=== PATIENT | female | born 1990 | race Caucasian/White ===

== ENCOUNTER 2017-01-08 09:10 | Inpatient (IN) ==
[2017-01-08] MEDS ORDERED: *HR* Nalbuphine 20 MG/ML AMPUL IVP PRN (09:23)
[2017-01-08] MEDS ORDERED: Famotidine 20 MG/2 ML VIAL IVP PRN (09:23)
[2017-01-08] MEDS ORDERED: Naloxone 0.4 MG/ML INJ IVP PRN ×2 (09:23→15:53)
[2017-01-08] MEDS ORDERED: Ringers Solution, Lactated 1,000 ML IVC SCH (09:30)
[2017-01-08] MEDS ORDERED: Oxytocin 20 units/ LR 1000 mL 20 UNIT/1,000 ML BAG IVC SCH ×2 (09:30→19:53)
[2017-01-08] MEDS ORDERED: Oxytocin 20 units/ LR 1000 mL 20 UNIT/1,000 ML BAG IVC ONE (09:40)
[2017-01-08] MEDS ORDERED: Ringers Solution, Lactated 1,000 ML ONE (09:40)
[2017-01-08 09:58] LABS: Basophils % 0.3 %; Eosinophils % 0.3 %; Hematocrit 40.3 % (35.3-44.9); Hemoglobin 14.5 g/dL (11.5-15.4); Immature Granulocytes % 0.4 % (0-4); Lymphocytes # 2.2 K/mcL (0.6-4.6); Lymphocytes % 19.5 %; Mean Platelet Volume 11.2 fL (9.4-12.4); Monocytes # 0.6 K/mcL (0.0-1.3); Monocytes % 5.5 %; Neutrophils # 8.4 K/mcL (1.6-8.9); Platelet Count 223 K/mcL (140-400); Red Blood Count 4.53 M/mcL (3.82-4.97)
--- NOTE | 2017-01-08 11:42 | Anesthesia Evaluation PreOp ---
Date of Encounter: 01/08/17 Time of Encounter: 11:15 - Past History Planned Operation: JULIANA Cardiac History: Denies any Significant Hx Pulmonary History: Denies Any Significant HX [employer] History: Denies Any Significant HX Other Medical History: Denies Any Significant HX Anesthesia History: No Prior Anesthetic Complications : Yes Alcohol Use: none Drug use: none Medications and Allergies Vit Calc,Iron,Folic [ Vitamins] 1 tab PO DAILY 01/08/17 [ History] Allergies No Known Allergies Allergy (Verified 01/08/17 10:28) - Meds/Allergy Pre-op Review Medications Reviewed: Yes Allergies Reviewed: Yes Beta Blockers on Current Med List: No Anesthesia Results - Labs 01/08/17 09:45 Anesthesia Exam BP 116/66 P 86 R 16 T 97.3 Height: 5'3" Weight: 78.5KG NPO (# of Hours): 4 Pain Scale: 0 Pain Scale Used: Numeric (1 - 10) - HEENT Pupil (Motor): Pupils equal Mallampati: II Teeth: Normal Oral Opening: Greater than 3 - [employer] LOC: Oriented [employer] Motor: Normal RUE, Normal LUE, Normal RLE, Normal LLE, Normal Face [employer] Sensory: Normal: RUE, LUE, RLE, LLE, Face - Cardiac Rhythm: Regular Murmur: None JVD: No Carotid Bruit: No - Pulmonary Breath Sounds: bilateral Clear Respiratory Effort: Symmetrical Anesthesia Assess/Plan ASA Score: 2 Modified Phil Scale for Level of Consciousness: Cooperative, oriented, and tranquil Anesthetic Plan: Regional Autologous Blood: No Monitoring Plan: Standard Monitors Recovery Plan: Other
--- NOTE | 2017-01-08 12:50 | OB/GYN History & Physical ---
Date of Encounter: 01/08/17 Time of Encounter: 12:30 Assessment and Plan (1) 37 weeks gestation of Current visit: Yes Status: Acute (2) SROM (spontaneous rupture of membranes) Current visit: Yes Status: Acute Pitocin augmentation in term with SROM. GBS negative. IUPC placed to evaluate montevideo units accurately. Patient declines needs at this time. History of Present Illness Chief complaint: SROM HPI: Ms. Barcenas is a 26 year old female G3 P 1-0-1-1 @ 37 2/7 weeks presents to labor and delivery for spointaneous rupture of membranes at 0630. She reports good movement and not really feeling contractions prior to starting pitocin. has been uncomplicated. Past Med Surg Social Fam HX - Past Medical History Source: patient Medical history: no medical history Psychiatric history: no psych history - Past Surgical History Surgical History: no surgical history - Social History Smoking Status: Never smoker Smokeless Tobacco Status: No Alcohol use: none Drug use: none Current living situation: Home - Independent Activity Level: Independent ambulation Recent Out of Country Travel Within the Last 8 Weeks: No - Family History Mother Name: denies any medical history Obstetrical History - Pregnancies : 3 Para: 1 Term: 1 : 0 Ab's: 1 Livin Medications and Allergies Vit Calc,Iron,Folic [ Vitamins] 1 tab PO DAILY 01/08/17 [ History] Allergies No Known Allergies Allergy (Verified 01/08/17 10:28) Review of System OB All systems PM: reviewed and no additional remarkable complaints except as stated Exam - Constitutional Constitutional: well developed, well nourished, no acute distress, average body habitus - HEENT HEENT: Normocephaly, Mucus Membranes Moist - Neck Neck exam: full ROM - Lungs Respiratory exam: CTAB - Cardiovascular Cardiovascular exam: RRR - Abdomen Abdomen: Present: bowel sounds normal, gravid, non tender - Extremities Extremities exam: warm - Vulva Vulva: bilateral: normal - Vagina Vagina: Present: normal moisture - Cervix Dilation: 2 Effacement: 50 Station: -3 - Comments Comments: Nitrazine positive, continues to leak clear amniotic fluid. IUPC placed without difficulty. FHT"s basline 135, reactive. CTX q 3-4 minutes with pitocin at 10 mUnits/min Results Result Diagrams: 01/08/17 09:45 Abnormal lab results WBC 11.3 K/mcL (4.3-11.1) H 01/08/17 09:45 MCHC 36.0 g/dL (31.6-35.5) H 01/08/17 09:45 All other labs normal. - VTE Reasons for not Prescribing Prophylaxis: Treatment not Indicated - Low risk for VTE
[2017-01-08] MEDS ORDERED: Ondansetron 4 MG/2 ML VIAL IVP PRN (15:53)
[2017-01-08] MEDS ORDERED: EPHEDrine 50 MG/ML VIAL IVP PRN (15:53)
[2017-01-08] MEDS ORDERED: *HR* FentaNYL (PF) 100 MCG/2 ML VIAL EP ONE (15:53)
[2017-01-08] MEDS ORDERED: Bupivacaine-MPF 0.25% 10 ML VIAL EP ONE (15:53)
[2017-01-08] MEDS ORDERED: Epidural Premix (fent/bupiv) 110 ML EP SCH (16:00)
[2017-01-08] MEDS ORDERED: Bupivacaine-MPF 0.25% 10 ML VIAL ONE (16:01)
[2017-01-08] MEDS ORDERED: *HR* FentaNYL (PF) 100 MCG/2 ML VIAL ONE (16:01)
[2017-01-08] MEDS ORDERED: Epidural Premix (fent/bupiv) 110 ML EP ONE (16:02)
--- NOTE | 2017-01-08 16:42 | Anesthesia Procedures ---
Date of Encounter: 01/08/17 Time of Encounter: 16:04 Procedures: Anesthesia - Epidural/Spinal Patient ID/Chart reviewed: Yes Patient examined: Yes OB Eval: Gestational age: 37.1 OB Eval: : 2 OB Eval: Hx Para: 1 OB Eval: Dilated at (cm): 4 OB Eval: Contractions: Non-stressed pattern Consent Obtained: Yes Supplemental Oxygen: None/Room Air Site Prep: Aseptic Technique, Sterile prep and drape, Povidone-Iodine 1% Patient position: upright Local Anesthetic: Lidocaine 1% Amount of Local Anesthetic used: 3 Touhy Needle Gauge: 18 Touhy Needle Depth (cm): 6 Catheter Depth at Skin (cm): 14 Test Dose (1.5% Lido + Epi): Volume given (mls): 3 Test Dose Result: Negative Loading Dose: 0.25% Marcaine (mls): 10 Loading Dose: Fentanyl (mcg): 100 Loading Dose Administered: Thru Catheter Infusion Med: 0.125% Bupivacaine w/ 2 mcg/ml Fentanyl Infusion Rate (mls/hr): [address]: Tegaderm, Tape Interspace Used: L4-L5 Loss of Resistance (RANJIT): Yes Blood: No CSF: No Paresthesia: No Procedure: JULIANA placed in upright position 1st pass without any immediate noted difficulty. VSS and FHT stable throughout. Vitals + FHT's: 1604 BP 148/58 P 87 R 18 1635 BP 121/70 P 77 R 16 FHT 130s
--- NOTE | 2017-01-08 17:55 | OB/GYN Procedure Note ---
Delivery - Delivery Date: 01/08/17 Provider: Candace Vail Intrapartum events: none Delivery augmentation: pitocin Delivery monitor: external FHT, external uterine, internal uterine Anesthesia: epidural Estimated Blood Loss: 200 - (s) Infant A Delivery Date: 01/08/17 Delivery Time: 17:31 Presentation: vertex Position: DEJA Route of delivery: Gender: Female Viability: Viable Pounds: 5 Ounces: 10 Weight Gram: 2.575 kg at 1 minute: 8 at 5 mins: 9 Shoulder Dystocia: not encountered Placenta: spontaneous - Repair Episiotomy: none Laceration Description: Perineal - 1st Degree - Complications Delivery complications: none Delivery comments: Called to room with patient complete and +2 station. Under maternal effort she delivered a viable female weighing 5 lbs. 10 oz. and Apgars 8 and 9 at one and 5 minutes respectively over first degree perineal laceration. Following delivery of the head there was no nuchal cord or shoulder dystocia encountered. The infant delivered with maternal effort. Placed on mom's abdomen. Cord was allowed to cease pulsations and then was double clamped and cut. Placenta delivered spontaneously, complete, and intact with a three-vessel cord. The first degree perineal laceration was reapproximated using 4-0 Vicryl. Sponge and needle counts correct at the end of the procedure. Mother and infant are recovering in the LDR in stable condition. - Disposition Mom disposition: stable in LDR [place] disposition: stable in LDR
[2017-01-08] MEDS ORDERED: Ibuprofen 600 MG TABLET PO PRN (19:53)
[2017-01-08] MEDS ORDERED: Acetaminophen 325 MG TABLET PO PRN (19:53)
[2017-01-09] MEDS ORDERED: Prenatal Vit/FA 1 EACH TABLET PO SCH (09:00)
--- NOTE | 2017-01-09 09:35 | Discharge Summary ---
Date of Encounter: 01/09/17 Time of Encounter: 09:33 - Discharge Diagnosis (1) Vaginal delivery Priority: Primary Status: Acute Comments: Patient meeting milestones (ambulating, voiding, flatus, no fever). Reports feeling well, would like to go home, 1st degree laceration minimal pain , no dehiscence. - Discharge Medications Home Medications: Vit Calc,Iron,Folic [ Vitamins] 1 tab PO DAILY 01/08/17 [ History] Docusate [Colace] 100 mg PO BID 01/09/17 [Rx] Ibuprofen [Motrin] 600 mg PO Q6HR PRN tab 01/09/17 [Rx] Vit/FA 1 each PO DAILY tab 01/09/17 [Rx] Allergies/Adverse Reactions: Allergies No Known Allergies Allergy (Verified 01/08/17 10:28) Data Procedures and tests throughout hospitalization: Laboratory Tests 01/08/17 09:45 WBC 11.3 H RBC 4.53 Hgb 14.5 Hct 40.3 MCV 89.0 MCH 32.0 MCHC 36.0 H RDW 13.0 Plt Count 223 MPV 11.2 Immature Gran % 0.4 Seg Neutrophils % 74.0 Lymphocytes % 19.5 Monocytes % 5.5 Eosinophils % 0.3 Basophils % 0.3 Neutrophils # 8.4 Lymphocytes # 2.2 Monocytes # 0.6 Eosinophils # 0.0 Basophils # 0.0 Labs on day of discharge: Labs from last 24 hours 01/08/17 09:45 WBC 11.3 H RBC 4.53 Hgb 14.5 Hct 40.3 MCV 89.0 MCH 32.0 MCHC 36.0 H RDW 13.0 Plt Count 223 MPV 11.2 Immature Gran % 0.4 Seg Neutrophils % 74.0 Lymphocytes % 19.5 Monocytes % 5.5 Eosinophils % 0.3 Basophils % 0.3 Neutrophils # 8.4 Lymphocytes # 2.2 Monocytes # 0.6 Eosinophils # 0.0 Basophils # 0.0 Date of admission: 01/08/17 09:10 Primary care physician: PCP NONE Consults: 01/08/17 19:53 Consult to Emergency Communications Operator [CONS] Routine Comment: Vaginal delivery, consult needed Discharging clinician: Simona Singh Anticipated date of discharge: 01/09/17 - Patient Status Disposition: Home, Self-Care Condition: Good Functional capacity at discharge: independent ambulation Overall status at discharge: patient is progressing back to baseline - Discharge Instructions Follow Up With: NONE,PCP [Primary Care Provider] - Candace Vail, DO [Partnered Physician] - - Diet and Activity Activity: increase activity as tolerated Diet: regular diet Hospital Course Reason for admission: induction of labor Delivery: Episiotomy: none Laceration: 1st degree Other procedures: none complications: none Discharge diagnosis: IUP at term delivered baby: female Hospital course: - Delivery Date: 01/08/17 Provider: Candace Vail Intrapartum events: none Delivery augmentation: pitocin Delivery monitor: external FHT, external uterine, internal uterine Anesthesia: epidural Estimated Blood Loss: 200 - Infant (s) Infant A Delivery Date: 01/08/17 Delivery Time: 17:31 Presentation: vertex Position: DEJA Route of delivery: Gender: Female Viability: Viable Pounds: 5 Ounces: 10 Weight Gram: 2.575 kg at 1 minute: 8 at 5 mins: 9 Shoulder Dystocia: not encountered Placenta: spontaneous - Repair Episiotomy: none Laceration Description: Perineal - 1st Degree - Complications Delivery complications: none - Disposition Mom disposition: home PPD1 [place] disposition: home with mother Time Attestation: Total time spent providing and/or coordinating discharge services: Time Spent: Less than 30 minutes Exam - Constitutional Vitals: Temp Pulse Resp BP Pulse Ox 97.6 F 86 14 123/72 97 01/09/17 08:26 01/09/17 08:26 01/09/17 08:26 01/09/17 08:26 01/09/17 08:26 General appearance IM: A&O X 3 - Respiratory Respiratory exam: Present: CTAB - Cardiovascular Cardiovascular exam IM: Present: +S1, +S2 - Uterus Position: 2 Fingers Above Umbilicus - Extremities Exam Extremities exam IM: Present: warm - Neurological Exam Neurological exam: CN II-XII intact
[2017-01-09 16:49] VITALS: BP 120/78
[2017-01-09] MEDS ORDERED: Ondansetron ODT 4 MG TAB.RAPDIS SL PRN (17:06)
== END 2017-01-09 20:00 | disposition home or self-care (01) | DRG 775 ==
LOC: 1NENULAB → OBSVTOIN 09:10 → 1NENUOBS 21:00
PROVIDERS: ADMIT Obstetrics & Gynecology; ATTEND Obstetrics & Gynecology

== ENCOUNTER 2020-07-23 07:52 | Inpatient (IN) ==
[2020-07-23] MEDS ORDERED: Metoclopramide 10 MG/2 ML VIAL IVP PRN (08:09)
[2020-07-23] MEDS ORDERED: Azithromycin 500 MG in 0.9 % Sodium Chloride 250 ML IVPB ONE (08:09)
[2020-07-23] MEDS ORDERED: Naloxone 0.4 MG/ML INJ IVP PRN (08:09)
[2020-07-23] MEDS ORDERED: Famotidine 20 MG/2 ML VIAL IVP PRN (08:09)
[2020-07-23] MEDS ORDERED: *HR* Nalbuphine 10 MG/ML AMPUL IV PRN (08:09)
[2020-07-23] MEDS ORDERED: Lidocaine 1% 20 ML MDV ID PRN (08:09)
[2020-07-23] MEDS ORDERED: Ondansetron 4 MG/2 ML VIAL IVP PRN (08:09)
[2020-07-23] MEDS ORDERED: Ringers Solution, Lactated 1,000 ML IVC SCH (08:15)
[2020-07-23] MEDS ORDERED: Oxytocin 20 units/ LR 1000 mL 20 UNIT/1,000 ML BAG IVC SCH ×2 (08:15→18:45)
[2020-07-23] MEDS ORDERED: EPHEDrine 50 MG/ML VIAL IVP PRN (08:33)
[2020-07-23] MEDS ORDERED: Epidural Premix (fent/bupiv) 110 ML EP SCH (08:45)
[2020-07-23 08:54] LABS: Basophils % 0.3 %; Eosinophils # 0.1 K/mcL (0.0-0.6); Eosinophils % 0.7 %; Hematocrit 38.2 % (35.3-44.9); Immature Granulocytes % 0.5 % (0-4); Lymphocytes # 2.8 K/mcL (0.6-4.6); Lymphocytes % 28.2 %; Mean Corpuscular HGB Conc 36.6 g/dL (31.6-35.5); Mean Corpuscular Hemoglobin 32.9 pg (28.0-33.3); Mean Corpuscular Volume 89.9 fL (83.0-100.0); Mean Platelet Volume 11.5 fL (9.4-12.4); Monocytes # 0.9 K/mcL (0.0-1.3); Monocytes % 9.2 %; Platelet Count 218 K/mcL (140-400); Red Blood Count 4.25 M/mcL (3.82-4.97); Red Cell Distribution Width 12.8 % (11.5-14.5); Segmented Neutrophils % 61.1 %; White Blood Count 9.8 K/mcL (4.3-11.1)
[2020-07-23 10:23] LABS: Influenza A PCR Negative (Negative); Influenza B PCR Negative (Negative); Resp. Syncytial Virus PCR Negative (Negative)
[2020-07-23 11:09] LABS: Amphetamine Screen,Urine Negative ng/mL (Cutoff=1000); Barbiturate Screen,Urine Negative ng/mL (Cutoff=200); Benzodiazepines Screen,Urine Negative ng/mL (Cutoff=200); Cannabinoid Screen,Urine Negative ng/mL (Cutoff = 50); Cocaine Screen,Urine Negative ng/mL (Cutoff= 300); Opiate Screen,Urine Negative ng/mL (Cutoff=300); Phencyclidine Screen,Urine Negative ng/mL (Cutoff=25)
[2020-07-23 11:25] LABS: SARS-CoV-2 by PCR (In House) Negative (Negative)
[2020-07-23] MEDS ORDERED: *HR* FentaNYL (PF) 100 MCG/2 ML VIAL ONE (17:06)
[2020-07-23] MEDS ORDERED: Ropivacaine/PF 0.2% 20 ML VIAL ONE (17:07)
[2020-07-23] MEDS ORDERED: Benzocaine/Menthol 56 GM AEROSOL SPRAY TP PRN (18:33)
[2020-07-23] MEDS ORDERED: Acetaminophen 325 MG TABLET PO PRN (18:33)
[2020-07-23] MEDS ORDERED: Lanolin 7 G OINT...G. TP PRN (18:33)
[2020-07-23] MEDS ORDERED: Oxytocin 20 units/ LR 1000 mL 20 UNIT/1,000 ML BAG IVC ONE (18:33)
[2020-07-23] MEDS: Ibuprofen 600 MG TABLET PO PRN (21:25)
[2020-07-24 08:00] VITALS: BP 95/57
[2020-07-24] MEDS: Ibuprofen 600 MG TABLET PO PRN (08:47)
[2020-07-24] MEDS ORDERED: Prenatal Vit/FA 1 EACH TABLET PO SCH (09:00)
== END 2020-07-24 18:55 | disposition home or self-care (01) | DRG 807 ==
LOC: 1NENULAB 07:52 → 1NENUOBS 21:12
PROVIDERS: ADMIT Obstetrics & Gynecology; ATTEND Obstetrics & Gynecology